=== PATIENT | male | born 1960 | race African-American/Black ===

== ENCOUNTER 2018-06-28 22:42 | Emergency (ER) | payer SELFPAY ==
[~2018-06-28] VITALS: Ht 180.3 cm; Wt 79.4 kg
[2018-06-28] MEDS ORDERED: Nitroglycerin 50mg/250ml btl 250 ML IV ONE (23:00)
[2018-06-28] MEDS ORDERED: Aspirin Baby 81mg ORAL ONE (23:00)
[2018-06-28 23:05] VITALS: BP 204/129
--- NOTE | 2018-06-28 23:10 | NUR ---
ED Nurse Note: Patient walked in by himself from home c/o chest pain /. AAO x4, S at this time. Patient skin is dry, intact. AAO x4/ VSS at this time.
--- NOTE | 2018-06-28 23:10 | Emergency Room Report ---
History of Present Illness General Chief Complaint: Chest Pain Source: Patient Present Illness [facility] This is a 57-year-old male with a history of TN in the past. He had a triple bypass surgery in 2005 in [place]. He has a history of high blood pressure and diabetes. He is not on any medication for at least a month. He said that he misses rent and his stuff was thrown out including his medication. He presents with chief complaint of chest pain. Onset was acute and occurred about 2 hours ago. He was eating dinner when he developed left-sided chest pain going to his back. He said he was short of breath. She felt nauseous but no diaphoresis. Worse with exertion. No fever or chills. No nausea vomiting. No diarrhea. He took 2 baby aspirin. Pain is 9 out of 10. Allergies: Coded Allergies: MORPHINE (Verified Allergy, Unknown, 06/28/18) Patient History Past Medical History: see triage record, old chart reviewed, DM, HTN, TN, CAD Past Surgical History: CABG Pertinent Family History: none Social History: Reports: smoking - marijuana Immunizations: other Reviewed Nursing Documentation: PMH: Agreed; PSxH: Agreed Nursing Documentation-PMH Past Medical History: No Stated History Review of Systems Eye: Denies: eye pain, blurred vision ENT: Denies: ear pain, nose congestion, throat swelling Respiratory: Denies: cough, shortness of breath Cardiovascular: Reports: chest pain; Denies: palpitations Gastrointestinal: Denies: abdominal pain, diarrhea, nausea, vomiting Musculoskeletal: Denies: back pain, joint pain Skin: Denies: rash Neurological: Denies: headache, numbness Endocrine: Denies: increased thirst, increased urine Hematologic/Lymphatic: Denies: easy bruising All Other Systems: negative except mentioned in HPI Physical Exam Vital Signs Date Time Temp Pulse Resp B/P (MAP) Pulse Ox O2 Delivery O2 Flow Rate FiO2 06/28/18 22:47 98.2 75 16 204/129 96 Room Air vitals with hypertension Sp02 EP Interpretation: reviewed, normal General Appearance: well appearing, no apparent distress, alert Head: normocephalic, atraumatic Eyes: bilateral eye PERRL, bilateral eye EOMI ENT: hearing grossly normal, normal pharynx Neck: full range of motion, supple, no meningismus Respiratory: chest non-tender, lungs clear, normal breath sounds Cardiovascular #1: regular rate, rhythm, no murmur Gastrointestinal: normal bowel sounds, non tender, no mass, no organomegaly, no bruit, non-distended Musculoskeletal: back normal, gait/station normal, normal range of motion Psychiatric: mood/affect normal Skin: warm/dry Procedures Critical Care Time Critical Care Time Critical care is mandated in this patient who presented with acute STEMI. Patient require my urgent intervention to attenuate the risks of metabolic collapse which may lead to cardiovascular collapse and . Critical care time is 35 minutes excluding any reportable procedure. Critical care time included evaluation, multiple reevaluation, looking at old charts, interpreting laboratory and diagnostic data, discussing case with patient and family and consultants, and charting. Medical Decision Making Diagnostic Impression: Primary Impression: STEMI (ST elevation myocardial infarction) Qualified Codes: I21.3 - ST elevation (STEMI) myocardial infarction of unspecified site Additional Impression: Hypertensive emergency without congestive heart failure ER Course Patient presents with chest pain and has STEMI. I called [facility] in and seed laboratory technician will be activated. I discussed the case with Dr. Tomlinson who said that the patient for transfer to [facility]. Patient given aspirin, nitro drip, heparin drip, and Plavix load. Dilaudid also given. Pain is improved. 911 will be activated for transfer to [facility]. EKG Diagnostic Results Rate: normal Rhythm: NSR ST Segments: other - STEMI, inferior lead with reciprocal changes ASA given to the pt in ED: Yes Rhythm Strip Diag. Results EP Interpretation: yes Rate: 72 Rhythm: NSR, no PVC's, no ectopy Chest X-Ray Diagnostic Results Chest X-Ray Diagnostic Results : Chest X-Ray Ordered: Yes # of Views/Limited/Complete: 1 View Indication: Chest Pain EP Interpretation: Yes Interpretation: no consolidation, no effusion, no pneumothorax, no acute cardiopulmonary disease Impression: No acute disease Electronically Signed by: Hang Santos MD Last Vital Signs Date Time Temp Pulse Resp B/P (MAP) Pulse Ox O2 Delivery O2 Flow Rate FiO2 06/28/18 22:47 98.2 75 16 204/129 96 Room Air Status: improved Disposition: XFER SHT-TRM HOSP Condition: Critical Scripts Unable to Obtain Active Prescriptions or Reported Meds Referrals: NOT CHOSEN IPA/,REFERRING (PCP) Hang Santos MD Jun 28, 2018 23:10
[2018-06-28] MEDS ORDERED: Heparin 5000 units/ml inj IV ONE (23:15)
[2018-06-28] MEDS ORDERED: HYDROmorphone 1mg/ml Carpuject IVP ONE (23:15)
[2018-06-28] MEDS ORDERED: Heparin 25,000u/D5W 500ml 500 ML IV SCH (23:15)
--- NOTE | 2018-06-28 23:15 | NUR ---
ED Nurse Note: Per patient he was having the chest pain, radiating to his back, for 2 hr. AAO x4, mildly agitated. Monitor: SR without ectopy, mildly tachypnic, pt's O2 sat was 100 on 4 L/NC. EKG done, diagnosed with STEMI. Readied for transfer to [facility]. Addendum: 06/29/18 at 0315 by CHARLES ED Nurse Note: correction patient in ST, not in SR.
[2018-06-28 23:23] LABS: BASOPHILS % (AUTO) 1.4 % (0.0-2.0); EOSINOPHILS % (AUTO) 0.6 % (0.0-3.0); HEMATOCRIT 40.8 % (42.0-52.0); HEMOGLOBIN 13.8 G/DL (14.2-18.0); LYMPHOCYTES % (AUTO) 41.4 % (20.0-45.0); MEAN CORPUSCULAR VOLUME 87 FL (80-99); MONOCYTES % (AUTO) 6.8 % (1.0-10.0); NEUTROPHILS % (AUTO) 49.8 % (45.0-75.0); PLATELET COUNT 239 K/UL (150-450); RED BLOOD COUNT 4.69 M/UL (4.70-6.10); WHITE BLOOD COUNT 6.7 K/UL (4.8-10.8)
[2018-06-28 23:30] VITALS: BP 210/113
[2018-06-28 23:31] LABS: ANION GAP 8 mmol/L (5-15); BLOOD UREA NITROGEN 17 mg/dL (7-18); CALCIUM 9.1 MG/DL (8.5-10.1); CARBON DIOXIDE 32 MMOL/L (21-32); CHLORIDE 101 MMOL/L (98-107); CREATININE 1.4 MG/DL (0.55-1.30); POTASSIUM 3.2 MMOL/L (3.5-5.1); SODIUM 141 MMOL/L (136-145)
--- NOTE | 2018-06-28 23:33 | NUR ---
ED Nurse Note: Pt admits to history of two other MIs and CABG [id number].
[2018-06-28 23:35] VITALS: BP 210/113
--- NOTE | 2018-06-28 23:35 | NUR ---
ED Nurse Note: Pt was transfered by DEXTER at 2335 by ACLS protocol to [facility].
[2018-06-28 23:45] LABS: ALANINE AMINOTRANSFERASE 20 U/L (12-78); ALKALINE PHOSPHATASE 87 U/L (46-116); ASPARTATE AMINO TRANSFERASE 20 U/L (15-37); BILIRUBIN,TOTAL 0.8 MG/DL (0.2-1.0); CKMB 1.3 NG/ML (0.0-3.6); CREATINE KINASE 125 U/L (26-308)
--- NOTE | 2018-06-29 15:34 | Diagnostic Imaging Report ---
Indication: Chest pain Technique: One view of the chest Comparison: none Findings: Lungs are somewhat hyperinflated. The heart is borderline enlarged. There are median sternotomy sutures and evidence of prior CABG lungs and pleural spaces are clear Impression: No acute process Border line cardiomegaly Possible COPD changes
--- NOTE | 2018-07-01 15:15 | Cardiology Report ---
APPROVED REPORT EKG Measurement Heart [id number] Normal sinus rhythm Left ventricular hypertrophy with repolarization abnormality Inferior infarct, possibly acute Consider right ventricular involvement in acute inferior infarct Abnormal ECG
== END 2018-06-28 23:35 | disposition short-term general hospital (02) ==
LOC: EMR 23:06
DX: I21.3 ST elevation (STEMI) myocardial infarction of unspecified site (principal); I16.1 Hypertensive emergency; I25.2 Old myocardial infarction; I10 Essential (primary) hypertension; I25.10 Atherosclerotic heart disease of native coronary artery without angina pectoris; E11.9 Type 2 diabetes mellitus without complications; I11.9 Hypertensive heart disease without heart failure; Z95.1 Presence of aortocoronary bypass graft; F12.90 Cannabis use, unspecified, uncomplicated; Z88.6 Allergy status to analgesic agent
CPT/HCPCS: 36415; 71045; 80053; 82550; 82553; 84484; 85025; 85610; 85730; 93005; 96365; 96366; 96368; 96375; 99291; J1170; J1644; 99284